=== PATIENT | female | born 1960 | race Caucasian/White ===

== ENCOUNTER 2022-03-30 07:58 | Day surgery (SDC) | payer MEDICAID, SELFPAY ==
--- NOTE | 2022-03-29 18:06 | PCM.HP.BLA ---
History and Physical Date of Admission: 03/30/22 Jo Huber 1960 ? ? REFERRING PHYSICIAN:? ?Jaclyn Klein MD ? CHIEF COMPLAINT:? ?left breast cancer? ? HPI: The patient is a 61 year old female presents with newly diagnosed left breast cancer She denies palpable breast masses. She denies nipple discharge. She states that her sister had breast cancer, no ovarian cancer known in family. 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 Her gynecological history is as follows - menarche onset at age 11/12, , breast feeding 4 years, denies exogenous hormones use, surgical menopause at age 43 ? Left breast mammograms 02/10/2022 There is an oval focal asymmetry in the left breast at 3 o'clock middle? depth.? This is seen in additional views.? This correlates with liver MRI? findings.? No other significant masses or calcifications are seen in the breast. IMPRESSION: INCOMPLETE: NEEDS ADDITIONAL IMAGING EVALUATION? The oval focal asymmetry in the left breast is indeterminate.? An? ultrasound is recommended. ? US left breast 02/10/2022 There is 1.3 cm x 1.2 cm x 0.8 cm oval mass in the left breast at 3? o'clock posterior depth.? This oval mass is hypoechoic.? This correlates? with mammography findings.? Color flow imaging demonstrates that there is? no vascularity present. IMPRESSION: SUSPICIOUS FINDING - BIOPSY SHOULD BE CONSIDERED? The 1.3 cm x 1.2 cm x 0.8 cm oval mass in the left breast is suspicious? of malignancy.? An ultrasound guided biopsy is recommended.? ? Jo is s/p US guided left breast needle core biopsy done on 02/22/2022 ? FINAL DIAGNOSIS A. Left breast, ultrasound-guided core biopsy: - Invasive ductal carcinoma, provisional Bimal grade 2, measuring 8 mm in greatest dimension. ? Breast Biomarkers - RESULTS: ?Estrogen Receptor (ER)? Positive 100 % ?Stain intensity: strong ?Progesterone Receptor (LA)? Positive 80 % ?Stain intensity: moderate HER2 (ERBB2) IMMUNOHISTOCHEMISTRY ASSAY Interpretation: NEGATIVE? ? PAST MEDICAL HISTORY ?Arthritis? ?Asthma? ?Depression? ?And anxiety ?GERD (gastroesophageal reflux disease)? ?Hypothyroidism01/26/2011 ?Malignant neoplasm of colon, unspecified [id number] ?Colon cancer ?Malignant neoplasm of liver, primary (HCC)1999 ?metastasis ?Migraine without aura? PAST SURGICAL HISTORY ?ABDOMINAL SURGERY HX ? ?ANES LWR ABD VENTRAL & INCISIONAL HERNIA REPAIR 1999 ?COLECTOMY PARTIAL W/ANASTOMOSIS 1999 ?Hemicolectomy ?COLON SURGERY HX ? ?COLONOSCOPY FLX DX W/COLLJ SPEC WHEN PFRMD ? ?Colonoscopy ?COLONOSCOPY FLX DX W/COLLJ SPEC WHEN PFRMD 05/04/2010 ?Performed by SANDRINE LABOY at [facility] ?COLONOSCOPY FLX DX W/COLLJ SPEC WHEN PFRMD 10/30/2015 ?Colonoscopy with mac ?COLONOSCOPY FLX DX W/COLLJ SPEC WHEN PFRMD 11/18/2020 ?ESOPHAGOGASTRODUODENOSCOPY TRANSORAL DIAGNOSTIC 10/08/2005 ?EGD ?ESOPHAGOGASTRODUODENOSCOPY TRANSORAL DIAGNOSTIC 10/28/2005 ?EGD ?ESOPHAGOGASTRODUODENOSCOPY TRANSORAL DIAGNOSTIC 10/30/2015 ?EGD with mac ?HERNIA REPAIR HX ? ?PAST SURGICAL HISTORY OF ? ?multiple RFA to the liver ?PAST SURGICAL HISTORY OF 1999 ?cholecystectomy ?TOTAL ABDOMINAL HYSTERECT W/WO RMVL TUBE OVARY 06/27/2003 ?bso also? for menorrhagia ?VAGINAL HYSTERECTOMY ? ? ? MEDICATIONS ?octreotide LAR (SANDOSTATIN LAR) 30 mg [place] INJInject 30 mg intramuscularly q 4 WEEKS. ?LUTEIN ORALTake 1 tablet by mouth once daily. ?doxepin capsule 50 mgTake 1 capsule by mouth daily at bedtime. ?verapamil SR (CALAN SR, ISOPTIN SR) 120 mg CR tabletTake 1 tablet by mouth daily at bedtime. ?PARoxetine (PAXIL) 20 mg tabletTake 1 tablet by mouth once daily. ?CALCIUM CITRATE ORALTake? by mouth once daily. ?FIBER, HERBAL, ORALTake 2 tablets by mouth every evening. ?levothyroxine (SYNTHROID) 100 mcg tabletTake 100 mcg by mouth daily before breakfast. ?Cholecalciferol, Vitamin D3, 2,000 unit tabTake 1 tablet by mouth once daily. ?SLIPPERY ELM BARK ORALTake 2 capsules by mouth twice daily. ?MILK THISTLE ORALTake 3 tablets by mouth twice daily. ?MULTIVITAMIN TABTake one(1) tablet daily. ?ALEVE 220 MG TABas necessary ?EXCEDRIN MIGRAINE 250 MG-250 MG-65 MG TABas necessary ?polyethylene glycol 3350 (MIRALAX, GLYCOLAX) 17 gram/dose powderUse as directed for Miralax / Gatorade Bowel Prep Kit ?Gatorade Sports DrinkUse as directed for Miralax / Gatorade Bowel Prep Kit ?Bisacodyl (DULCOLAX) 5 mg tabUse as directed for Miralax / Gatorade Bowel Prep Kit ?PARSLEY/GARLIC (GARLIC-PARSLEY ORAL)Take 2 capsules by mouth twice daily. ? ? ALLERGIES: Perfume, Adhesive, Bylhcccdxh-Ydrjjuiyrqheg-Xinc, Contrast Dye, Percocet [Oxycodone-Acetaminophen], and Seasonal Allergies ? PERSONAL HISTORY:? Tobacco Use ?Smoking status:Never ?Smokeless tobacco:Never Vaping Use ?Vaping Use:Never used Substance Use Topics ?Alcohol use:No ?Drug use:No ?? ? FAMILY HISTORY? ?HeartMother? ?CancerMother? Uterine ?DiabetesMother? type 2 ?HeartFather? ?[id number] ?other (Migraine)Son? ?other (Migraine)Daughter? ? ? The review of systems data was entered by the nurse and reviewed by me ? Nursing Notes:? Savannah Apodaca RN? 02/15/2022? 3:05 PM? Signed REVIEW OF SYSTEMS: ? ? ?General:? ?The patient NOTES fatigue, denies weight loss, NOTES weight gain, denies feeling hot, and denies feelings of cold. ? ? ?Eyes:? The patient denies glaucoma, denies eye injury/surgery, wears glasses or contacts. ? ? ?Ear/Nose/Throat:? The patient NOTES allergies, denies hayfever, denies ear infections, and denies bloody noses. ? ? ?Cardiovascular:? The patient denies chest pain, denies heart disease, denies high blood pressure,denies cardiac stent, denies prior heart attack, denies irregular heart beat, denies high cholesterol,? denies poor circulation, denies heart failure, other cardiac issues, denies claudication, denies cold feet, denies peripheral arterial stent. ? ? ?Respiratory:? The patient denies tuberculosis, NOTES pneumonia, denies frequent cough, denies pulmonary embolism, NOTES shortness of breath, and denies coughing up blood. ? ? ?Gastrointestinal:? The patient denies difficulty swallowing, NOTES acid reflux, denies ulcers, denies vomiting, denies jaundice/hepatitis, denies gallbladder problems, denies black or tarry stools, denies hemorrhoids, denies bleeding from rectum, NOTES diverticulitis, NOTES constipation, NOTES diarrhea, denies loss of stool control, and NOTES hernias. ? ? ?Kidney/Bladder:? The patient NOTES kidney stones, denies urine infections, and denies bloody urine. ? ? ?Skin:? The patient denies a history of skin cancer, denies bleeding/changing moles, and NOTES a history of skin rash. ? ? ?Neurologic:? The patient denies a history of epilepsy/convulsions, denies headaches, denies head/spinal injuries, and denies stroke/TIA. ? ? ?Psychiatric:? The patient denies psychiatric medications, NOTES depression, and denies voices, denies substance abuse. ? ? ?Endocrine:? The patient NOTES thyroid disorders, denies diabetes, and denies hormonal problems. ? ? ?Hematologic:? The patient denies a history of bruising, denies bleeding, and denies anemia, denies blood clots. ? ? ?Infections:? The patient NOTES a history of measles and mumps, denies rheumatic fever, and denies sexually transmitted diseases. ? ? ?Musculoskeletal:? The patient denies back pain/injury, denies back problems, denies sciatica, NOTES knee/foot trouble, denies arthritis, or denies gout. When was patient's last Mammogram screening? 02/10/2022 ?Last Colonoscopy:? 11/18/2020 Savannah Apodaca RN ? ? ? PHYSICAL EXAMINATION: ? General:? The patient is 61 year old female, well nourished, well hydrated in no acute distress.? The patient is oriented to time, place, and person. ? VITALS: Blood pressure 122/70, pulse 97, temperature 36.6 ?C (97.8 ?F), height 152.4 cm (5'), weight 88.1 kg (194 lb 3.2 oz), last menstrual period 12/01/2000, SpO2 95 %. Body mass index is 37.93 kg/m?.? ? Head ? Normocephalic. EOM intact with sclera clear and no icterus noted. Wearing glasses. Neck - supple with no jugular venous distention noted. Trachea is midline.? No thyroid enlargement or thyroid nodules detected. No masses noted. Chest/breast ? no asymmetry of breasts noted, no suspicious skin lesions noted 0 biopsy site well healed, no nipple discharge and both nipples everted, no breast masses noted Lungs ? clear to auscultation. Normal breath sounds. No rales/rhonchi/wheezing noted. No labored breathing noted, such as retractions. No cough heard. Heart ? normal S1 and S2 auscultated. No rubs/clicks/murmurs noted. Regular rate. Abdomen ? soft and benign. Difficult to determine if any masses or organomegaly due to body habitus. Extremities ? no calf tenderness noted. No pitting edema noted.? Skin ? normal skin integrity. Lymph ? no cervical adenopathy detected, no supraclavicular adenopathy detected, no axillary adenopathy detected Neurological ? gait normal, no focal deficits noted Psych ? calm and appropriate? ? ? IMPRESSION: LUOQ breast cancer (C50.412) ? PLAN:? I have discussed the above with the patient and her who is present with her I have offered surgical options of the following - breast lumpectomy via wire localization followed by radiation therapy versus mastectomy - either of which will require sentinel left axillary lymph node biopsy I have explained the procedure to the patient. I have counseled the patient as to the risks of the procedure, including but not limited to: infection, bleeding, injury to any blood vessels/nerves, scar tissue, seroma, lymphedema, cosmetic deformity, wound infections, complications of anesthesia, etc. ? the patient understands. The patient wishes to proceed. She will let me know her decision on day of surgery, she could not decide in our last conversation. I have answered multiple questions and she had no questions at time of last discussion. ?
--- NOTE | 2022-03-30 | IMM_PTH ---
PATIENT: CINTHIA CHACON LOC: [facility] [place] U#:[id number] AGE/SX: 61/F ROOM: RE03/30/[address]: Dr. Rita Estrella MD : 1960 BED: DIS: 03/30/2022 SPEC #: [id number] RECD: 04/02/22 12:42 STATUS: TAMMY REQ #: [id number] SHENG: 03/30/22 00:[address]: Rita Estrella DEPT: IMMUNOHISTOCHEMISTRY RECD BY: Karey Jo ENTERED: 04/02/22 12:44 SP TYPE: IMMUNO OTHR DR: Elías Gil, STREET ROLLER ENGINEER-C Tissues: A - Axillary lymph node, NOS Procedures: CK7 (add) Pankeratin (initial) Pankeratin (add) PHYSICIAN & INSTITUTION [place] [id number] SPECIMEN INFORMATION: Tissue Source: A ? Left axillary sentinel lymph nodes Clinical Info: Left breast cancer Specimen Number: [id number] A1-A4 CPT code: 77229, 09555 x7 METHODOLOGY: Deparaffinized sections of prefer/formalin-fixed tissue or PAP/DQ stained slides are incubated with monoclonal/polyclonal antibodies/oligonucleotide probes. Localization is made via biotin free immunoperoxidase method. Appropriate controls are performed and reacted as expected. Results on target cell population are indicated in the following table: RESULTS: ANTIBODY / CLONE RESULT Block A1 AE1-3 (AE1/AE3/PCK26) negative CK7 (OV-TL12/30) negative Block A2 AE1-3 (AE1/AE3/PCK26) negative CK7 (OV-TL12/30) negative Block A3 AE1-3 (AE1/AE3/PCK26) negative CK7 (OV-TL12/30) negative Block A4 AE1-3 (AE1/AE3/PCK26) negative CK7 (OV-TL12/30) negative These tests were developed and their performance characteristics determined by [facility]. They may not have been cleared or approved by the U.S. Food and Drug Administration. The FDA has determined that such clearance or approval is not necessary. The above immunohistochemical/dualISH markers are ordered and reviewed by the Pathologist. INTERPRETATION: A. Left axillary sentinel lymph nodes, biopsy: Three out of three lymph nodes, negative for metastatic carcinoma. BARBIE:foreign 04/05/2022
--- NOTE | 2022-03-30 | AXNB_PTH ---
PATIENT: CINTHIA CHACON LOC: [facility] [place] U#:[id number] AGE/SX: 61/F ROOM: RE03/30/[address]: Dr. Rita Estrella MD : 1960 BED: DIS: 03/30/2022 SPEC #: [id number] RECD: 03/30/22 12:33 STATUS: TAMMY RETom #: [id number] SHENG: 03/30/22 00:[address]: Rita Estrella DEPT: SURGICAL PATHOLOGY RECD BY: Karey Jo ENTERED: 03/30/22 13:28 SP TYPE: AX NODE BX OTHR DR: Elías Gil, PIER RUNNER-C Tissues: A - Axillary lymph node, NOS B - Left breast, NOS Procedures: Frozen Section (charge) Frozen Section Add'l ([facility]) Surgery Specimen Level V HEADER OPERATION: Left breast lumpectomy via wire localization with sentinel lymph node biopsy PRE-OP DIAGNOSIS: Left breast cancer TISSUE SUBMITTED: A ? Left axillary sentinel lymph node, FS, B ? Left breast lumpectomy, short suture - superior border, long suture - lateral, 2 short sutures - posterior border FROZEN SECTION DIAGNOSIS A. Left axillary sentinel lymph nodes, biopsy: Two out of two lymph nodes, negative for metastatic carcinoma. :foreign 03/30/2022 MICROSCOPIC DIAGNOSIS A. Left axillary sentinel lymph nodes, biopsy: Three out of three lymph nodes, negative for metastatic carcinoma. See comment. B. Left breast, lumpectomy with needle localization: Invasive ductal carcinoma. See cancer summary in the comment section. BARBIE:foreign 04/02/2022 COMMENT A. Block 4 also shows lymph node tissue. The lymph nodes are negative for metastatic carcinoma on multiple H & E levels and immunohistochemical stains for cytokeratins ([id number]). BREAST CANCER SUMMARY Procedure - excision with needle localization Specimen laterality - left Invasive tumor: Tumor site ? not specified Tumor size ? 1.4 x 1 x 1 cm Histologic type ? invasive ductal carcinoma with focal area of cribriform pattern. Histologic grade (Bimal grade): Glandular/tubular differentiation score - 2 Nuclear pleomorphism score - 3 Mitotic count score - 2 Overall grade - grade 2 (score of 7) Tumor focality ? single focus of invasive carcinoma. Ductal carcinoma in situ ? not identified. Lobular carcinoma in situ ? not identified Tumor extension: Skin ? not present Nipple ? not applicable Skeletal muscle ? not present Margins: Invasive carcinoma is 0.2 cm away from the closest superior margin. Regional lymph nodes: Number of lymph nodes examined - 3 Number of sentinel lymph nodes examined - 3 Number of lymph nodes with macrometastases, micrometastases or isolated tumor cells - 0 Treatment effect - no known presurgical therapy. Lymphvascular invasion ? not identified Dermal lymphvascular invasion ? not applicable Distant metastasis ? not applicable Additional Pathologic Findings ? fibrocystic changes and intraductal hyperplasia with focal areas of florid intraductal hyperplasia with multifocal atypia. Ancillary Studies: Previously performed on same tumor ([id number] from [facility]) ER: positive (100%, strong) VA: positive (80%, moderate) Aao2xsu: negative (0) Microcalcifications ? not identified Clinical History - Please make reference to previous specimen ([id number] from [facility]), left breast, ultrasound-guided core biopsy with diagnosis of ?invasive ductal carcinoma, provisional Bimal grade 2, measuring 8 mm in greatest dimension.? PATHOLOGIC STAGE: pT1c pN0(sn) pMx The above summary is in compliance with [employer] [employer] (CAP) Cancer Protocols Checklist and [place] [employer] Committee on Cancer (AJCC), Staging Manual, 8th Ed. Case has been reviewed in consultation with Dr. Clark who concurs with the above diagnosis. IDC:AM MICROSCOPIC DESCRIPTION Slides are reviewed. GROSS DESCRIPTION A - Received fresh for frozen section diagnosis labeled with the patient's name is a specimen designated left axillary sentinel lymph node. The specimen consists of a piece of adipose tissue containing nodules measuring 5 x 4 x 2 cm. Two lymph nodes are identified measuring 1 and 3 cm in greatest dimension. The lymph nodes are submitted for frozen section diagnosis in entirety. A focal indurated area, ? possible lymph node, is also noted. Cracking Machine Operator sections are submitted in four cassettes as follows: 1 & 2 - frozen section, one serially sectioned lymph node, 3 - frozen section, one bisected lymph node, 4??possible lymph node tissue. / :foreign 03/30/2022 B - Received fresh for intraoperative consultation labeled with the patient's name is a specimen designated left breast lump. The specimen consists of a piece of fibroadipose tissue with needle localization measuring 7 x 5 x 3 cm. The specimen is oriented as follows: short suture - superior border, long suture - lateral, 2 short sutures - posterior border. The specimen is inked as follows: anterior - yellow, posterior - black, superior - blue, inferior - green, medial - red and lateral - orange. Serial sections reveal a viveros, indurated tumor mass measuring 1.4 x 1 x 1 cm. This mass is closest to the superior margin of the specimen. Sections of the rest of the specimen reveal viveros-yellow adipose cut surfaces mixed with viveros-white fibrous area. Cracking Machine Operator sections are submitted in ten cassettes as follows: 1??perpendicular medial, lateral and anterior margins, 2 - perpendicular posterior and inferior margins, 35 - entire tumor with closest superior margin, 6-10 - sales representative supervisor sections away from the tumor. Sections are submitted after additional fixation. / :foreign 03/31/2022 TC:0 CPT: 90866 x2, 56232, 44265, 90959 x2
[2022-03-30 08:38] VITALS: BP 141/75; PULSE 87; RESP 17; TEMP 36.7; O2SAT 94; BMI 36.6
[2022-03-30] MEDS: Lactated Ringers 1,000 ML 75 ML IV (08:43)
--- NOTE | 2022-03-30 09:00 | NM_ITS ---
STUDY: NM Injection Procedure. PROCEDURE: Lohn lymph node injection. DATE OF EXAM: 03/30/2022 CLINICAL INDICATION: Left breast cancer. COMPARISON: Comparison is made to previous films from RADIOPHARMACEUTICAL: TECHNETIUM 99M sulfur colloid 1.0 mCi FINDINGS: The procedure, risks, alternatives and complications were explained to the patient and informed consent was obtained. The patient was placed supine on the table. Physical examination of the left breast was performed after which the periareolar region was prepped and draped in the usual sterile manner. The TECHNETIUM radiopharmaceutical was then injected subcutaneously in the periareolar tissues at the 4 quadrants and the needles were removed. Sterile dressing was placed. The patient tolerated the procedure well with no immediate complications. NM/Lymph Node Injection Only IMPRESSION: Left breast sentinel lymph node injection. Electronically Signed: Matt Salazar MD at 12:34 EDT ,
--- NOTE | 2022-03-30 09:30 | BI_ITS ---
SURGICAL BREAST SPECIMEN RADIOGRAPH CLINICAL: Document presence of tissue clip marker in biopsy specimen. FINDINGS: Specimen shows presence of tissue clip marker. Pathology is pending and an addendum to the biopsy report will be performed after the final pathologic diagnosis is rendered. Electronically Signed: Bladimir Robbins MD at 15:27 EDT , BI/Breast Biopsy Specimen IMPRESSION: undefined
--- NOTE | 2022-03-30 11:31 | OP.PCM_ITS ---
Report of Operation Date of Procedure: 03/30/22 Pre-Operative Diagnosis: left breast cancer - UOQ (C50.412) Post-Operative Diagnosis: same Surgery/Procedure Performed:: left breast lumpectomy via wire localization, left axillary sentinel lymph node biopsy via radioactive and blue dye localization Surgeon: Rita Estrella glass cutter: Leslie Cortez Type of Anesthesia: General Anesthesiologist: Dale Gomez Specimen's removed: left axillary sentinel lymph nodes, left breast lumpectomy specimen Estimated Blood Loss (mL): < 10 ml Fluids Replaced: see anesthesia note Description of Procedure: After informed consent was given, the patient was brought into the Breast [facility] Radiology suite. Appropriate time out protocol was followed. The patient was then placed in the prone position on the [place] stereotactic table. The patient?s left breast was placed in the opening at the head of the table. A maintenance planner compression mammogram was then obtained in the lateral view. The marker clip that was previously placed was identified. Stereo pictures of the lesion were then taken for XYZ coordinates. The Kopans needle was then positioned where it would be entering into the patient?s breast. The skin at this site was then cleansed with a surgical skin preparation. The skin and subcutaneous tissues at this site were then infiltrated with 1% xylocaine. The Kopans needle was then positioned into the patient?s breast at the proper coordinates of depth. A maintenance planner film was obtained which revealed the wire in proper position. The patient was then placed in the supine position and the wire was taped into place. A unilateral mammogram in the CC and MLO view were then taken for use in the OR. The patient tolerated this portion of the procedure well and was brought to the AC awaiting surgery in the OR. Name: ?left breast lumpectomy via wire localization and left axillary sentinel lymph node biopsy via radioactive and blue dye localization? Synoptic Portion: Element Response Options Operation performed with curative intent. [ Yes ] Tracer(s) used to identify sentinel nodes in the upfront surgery (non- neoadjuvant) setting (select all that apply). [Lymphozurin Dye; Radioactive tracer ] Tracer(s) used to identify sentinel nodes in the neoadjuvant setting (select all that apply).[ N/A.] All nodes (colored or non-colored) present at the end of a dye-filled lymphatic channel were removed. [Yes] All significantly radioactive nodes were removed. [Yes] All palpably suspicious nodes were removed. [Yes] Biopsy-proven positive nodes marked with clips prior to chemotherapy were identified and removed. Not applicable The patient was then brought to the Operating Room. Appropriate time out protocol was followed. The patient was then placed on the operating table in the supine position. A wire had already been placed in the stereotactic biopsy room in the radiology department as described above. The patient had radioactive isotope injected earlier this day by the radiologist for radioactive tracer tracking. After the patient was placed under general anesthesia by the anesthesia provider, the periareolar subcutaneous tissues (to include Sappey's plexus) of the left breast were infiltrated with lymhazurin blue dye - diluted to a 50:50 mixture with saline - total of 2 ml used, using a 25G needle. Gentle massage was then done for a few minutes. The left breast with the wire in placed and the axilla and the torso was then prepped with a sterile surgical skin preparation and sterile surgical drapes were placed. The Neoprobe device was brought into the operative field. A skin incision was made in the inferior portion of the hair bearing area of the left axilla. It was carried through to the subcutaneous tissues using electrocautery. Any hemorrhage was controlled with electrocautery. A Weitlaner retractor was used for increased operative exposure. The Neoprobe 10 second count over the tumor bed was 912. The 10 second count over the abdominal area was 0. The 10 second count over the axilla was 341. Blunt dissection was conducted into the soft tissues of the axilla. The blue lymphatic vessels were then followed by the blunt dissection until blue colored lymph nodes were identified. This lymph yajaira tissue was from the surrounding tissue by blunt dissection and the vascular pedicles ligated with ligaclips. The Neoprobe 10 second count of the lymph yajaira tissue was 256. The lymph yajaira tissue was then forwarded to pathology for frozen section. Pathology revealed that two lymph nodes were negative for metastatic disease. Careful examination was done in the axilla, no further palpable masses were noted in the axilla. No further blue colored tissue was noted in the axilla. The 10 second Neoprobe count in the axilla was 1. Hemostasis was carefully controlled by electrocautery. Charo was applied in the axillary cavity. The deep tissues were approximated with 2-0 vicryl suture. The skin edges were reapproximated with 3-0 vicryl suture in a horizontal mattress fashion and then further closed with running 4-0 monocryl in a subcuticular fashion. The left breast lumpectomy was done next. A wire had already been placed in the stereotactic biopsy room in the radiology department as described above. The skin and subcutaneous tissues at the site of the breast lesion was then infiltrated with 1% xylocaine with epinephrine. A transverse skin incision was then made at the wire entance site - mid-lateral aspect of the left breast. This was done with a 15 blade scalpel and carried down through to the subcutaneous tissues. Hemostasis was controlled with electrocautery. The wire was then palpated out within the breast tissue. The breast tissue surrounding the wire was then carefully palpated out and from the surrounding tissues using electrocautery. The breast tissue, once from the breast, was then forwarded to the radiology department, where a specimen mammogram revealed that the marker clip was within the specimen. The breast tissue was then forwarded to pathology for analysis. Pathology review revealed that the closest margin was superior but clear from the palpable mass. The wound cavity was carefully examined. No further suspicious tissue was palpated or visualized. Hemostasis was carefully controlled with electrocautery. The subdermal tissues were then approximated with vicryl suture. The incision was then reapproximated close using running monocryl suture. Cavilon and steristrips were then placed to reinforce the skin closure. Sponge, needle, and instrument count were verified and correct at the time of skin closure. A sterile dressing was then applied. The patient was then brought to the Recovery Room in stable condition. Complications none noted Admit VTE Documentation VTE Present on Admission: Yes VTE Mechan Device Prophylaxis: SCD's
[2022-03-30] MEDS: 0.9% Normal Saline (Pres. free 10 ML Vial (12:00)
[2022-03-30] MEDS: Isosulfan Blue 1% 5 ML Vial (12:00)
[2022-03-30] MEDS: Lidocaine 1% /Epi 1:100 (20ml) 20 ML Vial (12:06)
--- NOTE | 2022-03-30 13:49 | DCINST_ITS ---
Discharge Instructions Follow Up Care Test Results: Test results from this visit will be discussed in further detail at your follow- up appointment, if applicable. Discharge Plan Admission Attending Provider: Rita Estrella Primary Care Provider: Elías Gil NP Instructions Additional Instructions / Restrictions: Recommended pain control regimen - May take 600 mg ibuprofen (Motrin) and then in 3-4 hours, may take 650 mg acetaminophen (Tylenol), then in 3-4 hours may take 600 mg ibuprofen, then in 3- 4 hours may take 650 mg acetaminophen and so on for 2-3 days May take narcotic pain medication for pain that is not controlled by above and at night for comfort through the night Leave dressings in place May shower, do not scrub in the areas of the dressings as they may unravel. Do not soak - no tub baths/swimming Ice applied to areas of discomfort may help No lifting/pushing/pulling greater than 10 pounds for a month with left arm. Regular diet as tolerated, drink plenty of fluids. For breast surgeries - wear supportive bra during the day to prevent the weight of your breasts from pulling on the incisional site. Please call my office for an appointment to see me in on Apr 05, please call for a time. Office number is If any questions, please call my office at and ask the tape making machine operator for the general surgery nurses desk Discharge Orders/Prescriptions Prescriptions: New hydrocodone-acetaminophen 5-325 mg tablet 1 tab PO Q8H 5 Days Qty: 15 0RF No Action doxepin 50 mg Capsule 50 mg PO QHS atorvastatin 10 mg Tablet 10 mg PO QHS verapamil 120 mg Tablet 120 mg PO QHS paroxetine HCl [Paxil] 20 mg Tablet 20 mg PO DAILY levothyroxine 112 mcg Tablet 112 mcg PO DAILY octreotide acetate [Sandostatin] 100 mcg/mL Solution 100 mcg SUBCUT .[id number] Referrals / Follow Up: Elías Gil NP, [employer]ATIONAL [employer]ATIONS PROFESSOR-C [Primary Care Provider] -
[2022-03-30 14:05] VITALS: BP 128/78; BP 141/75; PULSE 87; RESP 18; TEMP 36.8; O2SAT 93
[2022-03-30 14:15] VITALS: BP 125/80; BP 141/75; PULSE 90; RESP 16; O2SAT 93
[2022-03-30 14:30] VITALS: BP 132/64; BP 141/75; PULSE 88; RESP 18; TEMP 36.6; O2SAT 96
[2022-03-30 15:28] VITALS: BP 113/67; BP 141/75; PULSE 86; RESP 16; TEMP 36.3; O2SAT 97
[2022-03-30] MEDS: HYDROcodone Bitartrate/Apap 5/325 Tablet PO (15:30)
[2022-03-30 15:58] VITALS: BP 117/58; BP 141/75; PULSE 85; RESP 16; TEMP 37.1; O2SAT 97
== END 2022-03-30 16:31 | disposition home or self-care (01) ==
LOC: SDC 08:01 → AC 08:01
PROVIDERS: PCP Nurse Practitioner Family; Referring Provider Surgery; Visit Provider Surgery
PROC: (CPT 19301; principal; 2022-03-30 11:15)
DX: C50.412 Malignant neoplasm of upper-outer quadrant of left female breast (principal); Z80.3 Family history of malignant neoplasm of breast; E78.00 Pure hypercholesterolemia, unspecified; F32.A Depression, unspecified; F41.9 Anxiety disorder, unspecified; Z85.038 Personal history of other malignant neoplasm of large intestine; Z85.05 Personal history of malignant neoplasm of liver
CPT/HCPCS: 19301; 19081; 38525; 00404; 88305; 19281; 38792; 76098; 88307; 88331; 88332; 88341; 88342; 93005; A9541; J7120; J2405; J3490; Q9968

== ENCOUNTER → 2023-07-12 | Outpatient (CLI) | payer MEDICAID, SELFPAY ==
[2023-07-12 17:43] LABS: Absolute Lymphocyte Count 1.82 X10^3/uL (0.83-4.51); Basophil# 0.05 X10^3/uL; Basophil% 0.8 % (0-1); Eosinophil# 0.17 X10^3/uL; Eosinophils% 2.6 % (0-5); Hematocrit 40.6 % (37-47); Hemoglobin 13.2 g/dL (12.0-15.0); Lymphocyte # 1.82 X10^3/ul (0.83-4.51); Lymphocyte % 27.7 % (19-41); Mean Corp Hgb Conc 32.5 g/dL (32-36); Mean Corpuscular Hgb 27.7 pg (27.0-32.0); Mean Corpuscular Volume 85.1 fL (81-99); Monocyte# 0.52 X10^3/uL; Monocyte% 7.9 % (0-10); NRBC Flagged by Analyzer 0 % (0-5); Neutrophil % 60.7 % (47-70); Platelet Count 263 K/mm3 (150-450); RBC Distribution Width CV 14.3 % (11.6-14.6); RBC Distribution Width SD 44.4 fl (35.1-43.9); Red Blood Count 4.77 M/mm3 (4.2-5.4); White Blood Count 6.6 K/mm3 (4.4-11.0)
[2023-07-12 18:02] LABS: Vitamin D,25 Hydroxy 21.7 ng/mL
[2023-07-12 18:18] LABS: AST(SGOT) 23 U/L (15-37); Alanine Aminotransfer ALT/SGPT 35 U/L (13-56); Albumin, Serum 3.7 g/dL (3.2-5.0); Alkaline Phosphatase 87 U/L (45-117); Anion Gap 8 (5-15); BUN 11 mg/dL (7-18); BUN/Creat Ratio 14.6 RATIO (10-20); Calcium,Total 8.7 mg/dL (8.5-10.1); Chloride 107 mmol/L (98-107); Cholesterol 216 mg/dL (200); Creatinine, Serum 0.75 mg/dL (0.55-1.02); EST Glomerular Filtration Rate 82 mL/min (>60); Est Glom Filt Rate - Afr Amer 99 mL/min (>60); Globulin 3.6 g/dL (2.2-4.2); Glucose 122 mg/dL (74-106); High Density Lipoprotein 34 mg/dL; Protein, Total 7.3 g/dL (6.4-8.2); Sodium Level 141 mmol/L (136-145); Triglycerides 294 mg/dL; Very Low Density Lipoprotein 59 mg/dL (5-40)
== END | disposition home or self-care (01) ==
LOC: MFPLAB 15:22
PROVIDERS: PCP Family Medicine; Visit Provider Family Medicine
DX: F32.A Depression, unspecified (principal); E78.00 Pure hypercholesterolemia, unspecified; E03.9 Hypothyroidism, unspecified
CPT/HCPCS: 36415; 80053; 80061; 82306; 84443; 85025

== ENCOUNTER → 2023-10-18 | Outpatient (CLI) | payer MEDICAID, SELFPAY ==
[2023-10-18 13:01] LABS: Erythrocyte Sedimentation Rate 10 mm/hr (0-30)
[2023-10-18 13:03] LABS: Absolute Lymphocyte Count 1.32 X10^3/uL (0.83-4.51); Absolute Neutrophil Count 3.4 X10^3/uL (2.0-7.7); Basophil# 0.03 X10^3/uL; Basophil% 0.6 % (0-1); Eosinophil# 0.07 X10^3/uL; Eosinophils% 1.3 % (0-5); Hematocrit 41.9 % (37-47); Hemoglobin 13.3 g/dL (12.0-15.0); Lymphocyte # 1.32 X10^3/ul (0.83-4.51); Mean Corp Hgb Conc 31.7 g/dL (32-36); Mean Corpuscular Hgb 26.7 pg (27.0-32.0); Mean Corpuscular Volume 84.1 fL (81-99); Mean Platelet Vol. 10.7 fl (6.2-12.0); Monocyte# 0.44 X10^3/uL; Monocyte% 8.3 % (0-10); NRBC Flagged by Analyzer 0 % (0-5); Neutrophil # 3.41 X10^3/uL (2.7-7.7); Neutrophil % 64.6 % (47-70); Platelet Count 225 K/mm3 (150-450); RBC Distribution Width CV 14.3 % (11.6-14.6); RBC Distribution Width SD 43.8 fl (35.1-43.9); Red Blood Count 4.98 M/mm3 (4.2-5.4); White Blood Count 5.3 K/mm3 (4.4-11.0)
[2023-10-18 14:49] LABS: ALB/GLOB Ratio 1.2 RATIO (0.9-2.4); AST(SGOT) 19 U/L (15-37); Alanine Aminotransfer ALT/SGPT 22 U/L (13-56); Albumin, Serum 3.7 g/dL (3.2-5.0); Alkaline Phosphatase 74 U/L (45-117); Anion Gap 7 (5-15); BUN 11 mg/dL (7-18); BUN/Creat Ratio 13.9 RATIO (10-20); Chloride 109 mmol/L (98-107); Creatinine, Serum 0.79 mg/dL (0.55-1.02); EST Glomerular Filtration Rate 78 mL/min (>60); Est Glom Filt Rate - Afr Amer 94 mL/min (>60); Globulin 3.2 g/dL (2.2-4.2); Glucose 95 mg/dL (74-106); Potassium 4.2 mmol/L (3.5-5.1); Protein, Total 6.9 g/dL (6.4-8.2); Sodium Level 142 mmol/L (136-145)
== END | disposition home or self-care (01) ==
LOC: MFPLAB 10:50
PROVIDERS: PCP Family Medicine; Visit Provider Family Medicine
DX: R51.9 Headache, unspecified (principal)
CPT/HCPCS: 36415; 80053; 85025; 85652

== ENCOUNTER → 2023-10-21 | Outpatient (CLI) | payer MEDICAID, SELFPAY ==
--- NOTE | 2023-10-21 12:44 | MRI_ITS ---
STUDY: MRI BRAIN WITH AND WITHOUT CONTRAST REASON FOR EXAM: Female, 63 years old. headache, dysmetria, impaired number identification TECHNIQUE: Standardized multiplanar fat and water weighted pulse sequences were obtained. IV 16ml clariscan was administered for the contrast portion of the examination. COMPARISON: None. FINDINGS: Normal size of the ventricles and extra-axial spaces for the patient''s age. Normal white matter tracts of the supratentorial brain. There are no demyelinating plagues of the supratentorial brain, brainstem or cerebellum. There are no findings suspicious for multiple sclerosis (MS). Normal bilateral frontal poles, and orbital frontal and gyrus recti of the frontal lobes. Normal bilateral temporal tips of the temporal lobes. There are no white matter shear injuries (diffuse axonal injuries). There are no parenchymal hemorrhages or hematomas. There are no findings to suggest prior closed head parenchymal injury of the brain. There is no evidence for recent intracranial ischemia or other cause of cytotoxic edema on diffusion weighted imaging (DWI). No hydrocephalus or midline shift is present. No focal parenchymal edema is seen. Normal bilateral basal ganglia. Normal thalami. There is no extra-axial fluid accumulation. Normal flow voids within the major intracranial circulation suggesting patency by spin echo criteria. Normal venous enhancement. There is no enhancing intra-axial or extra-axial abnormality. There are no enhancing lesions of the brain parenchyma and no abnormal thickening or enhancement of meninges or dura. No skull lesions are present. Normal sella turcica, pituitary gland, infundibular stalk, optic chiasm and hypothalamus. Normal tectal plate and pineal gland. Normal midbrain, ethan and medulla. Normal cerebellum. Normal basal cisterns. Normal bilateral temporal bones. Normal bilateral internal auditory canals. No demonstrated orbital abnormality, within the constraints of a routine brain study. Normal visualized paranasal sinuses. Normal calvarium and skull base. Normal visualized soft tissue structures. Normal visualized upper cervical spine. MRI/Brain W/WO Contrast IMPRESSION: 1. Normal unenhanced and enhanced MRI of the brain. 2. There are no enhancing lesions of the brain parenchyma and no abnormal thickening or enhancement of meninges or dura. No skull lesions are present. 3. No demonstrated acute infarct. Electronically Signed: Oneil Ho MD at 15:34 EDT ,
== END | disposition home or self-care (01) ==
LOC: MRI 12:41
PROVIDERS: PCP Family Medicine; Referring Provider Family Medicine; Visit Provider Family Medicine
DX: R27.8 Other lack of coordination (principal)
CPT/HCPCS: 70553; A9575

== ENCOUNTER → 2023-10-25 | Outpatient (CLI) | payer MEDICAID, SELFPAY ==
[2023-10-25 10:33] LABS: AST(SGOT) 19 U/L (15-37); Alanine Aminotransfer ALT/SGPT 22 U/L (13-56); Albumin, Serum 3.4 g/dL (3.2-5.0); Alkaline Phosphatase 71 U/L (45-117); Bilirubin, Direct 0.16 mg/dL (0.00-0.30); Globulin 3.3 g/dL (2.2-4.2); Protein, Total 6.7 g/dL (6.4-8.2)
== END | disposition home or self-care (01) ==
LOC: MFPLAB 08:49
PROVIDERS: PCP Family Medicine; Visit Provider Family Medicine
DX: E80.6 Other disorders of bilirubin metabolism (principal)
CPT/HCPCS: 36415; 80076

== ENCOUNTER → 2024-03-20 | Outpatient (CLI) | payer MEDICAID, SELFPAY ==
--- NOTE | 2024-03-20 14:29 | RAD_ITS ---
INDICATION: right arm injury EXAMINATION/TECHNIQUE: X-RAY - RIGHT XR Forearm 2 Views 2 VIEWS COMPARISON: No relevant prior comparison study available FINDINGS: SOFT TISSUES: No soft tissue swelling or gas. No radiopaque foreign body. BONES/JOINTS: No acute fracture or subluxation.. Normal alignment. Preservation of the joint space.. No sclerotic or destructive changes observed. RAD/Forearm 2 Views IMPRESSION: 1. No evidence fracture, malalignment or focal bony or joint space abnormality. Electronically Signed: Bladimir Giraldo MD at 19:23 EDT ,
--- NOTE | 2024-03-20 14:29 | RAD_ITS ---
INDICATION: Injury EXAMINATION/TECHNIQUE: X-RAY - LEFT XR Wrist Min 3 Views 3 VIEWS COMPARISON: No relevant prior comparison study available FINDINGS: SOFT TISSUES: No soft tissue swelling or gas. No radiopaque foreign body. BONES/JOINTS: There is normal bony alignment, carpal rows have normal appearance. Mild degenerative change noted at the triscaphe joint. Mildly irregular appearance of the base of the 1st metacarpal which appears to be chronic or developmental. Joint spaces are maintained. No fractures noted. No acute destructive bony process. RAD/Wrist min 3 Views IMPRESSION: 1. No fractures, dislocation or acute bony changes. 2. Degenerative changes at the triscaphe joint Electronically Signed: Bladimir Giraldo MD at 19:19 EDT ,
--- NOTE | 2024-03-20 14:29 | RAD_ITS ---
INDICATION: Left shoulder injury EXAMINATION/TECHNIQUE: X-RAY - LEFT XR Shoulder Min 2 Views COMPARISON: No previous relevant examinations for comparison. FINDINGS: SOFT TISSUES: 1. No soft tissue swelling or gas. 2. Multiple pins are projecting over the soft tissues of the mid chest and LEFT shoulder. 3. No other radiopaque foreign body. BONES/JOINTS: 1. No acute fracture or subluxation.. Normal alignment. Preservation of the joint space.. No sclerotic or destructive changes observed. 2. There is normal glenohumeral motion. There is normal alignment of the acromioclavicular joint however mildly prominent osteophytes are present.. 3. The clavicle, acromion, scapula and rib cage have normal appearance. RAD/Shoulder min 2 Views IMPRESSION: 1. No fracture malalignment or focal bony or joint space abnormality involving the shoulder.. 2. Osteophyte formation at the AC joint. 3. Multiple pins are projecting over the LEFT shoulder and midline of the chest. Electronically Signed: Bladimir Giraldo MD at 19:22 EDT ,
== END | disposition home or self-care (01) ==
LOC: MTRAD 14:26
PROVIDERS: PCP Family Medicine; Referring Provider Family Medicine; Visit Provider Family Medicine
DX: M19.032 Primary osteoarthritis, left wrist (principal); S49.91XS Unspecified injury of right shoulder and upper arm, sequela
CPT/HCPCS: 73030; 73090; 73110

== ENCOUNTER → 2024-10-12 | Outpatient (CLI) | payer MEDICAID, SELFPAY ==
[2024-10-12 10:48] LABS: Absolute Lymphocyte Count 1.72 X10^3/uL (0.83-4.51); Absolute Neutrophil Count 3.7 X10^3/uL (2.0-7.7); Basophil# 0.04 X10^3/uL; Basophil% 0.7 % (0-1); Eosinophil# 0.12 X10^3/uL; Hematocrit 40.8 % (37-47); Hemoglobin 13.3 g/dL (12.0-15.0); Lymphocyte # 1.72 X10^3/ul (0.83-4.51); Lymphocyte % 28.8 % (19-41); Mean Corp Hgb Conc 32.6 g/dL (32-36); Mean Corpuscular Hgb 28.3 pg (27.0-32.0); Mean Corpuscular Volume 86.8 fL (81-99); Mean Platelet Vol. 9.9 fl (6.2-12.0); Monocyte# 0.43 X10^3/uL; Monocyte% 7.2 % (0-10); NRBC Flagged by Analyzer 0 % (0-5); Neutrophil # 3.65 X10^3/uL (2.7-7.7); Platelet Count 227 K/mm3 (150-450); RBC Distribution Width SD 44.8 fl (35.1-43.9)
[2024-10-12 12:20] LABS: ALB/GLOB Ratio 1.6 RATIO (0.9-2.4); AST(SGOT) 17 U/L (<=31); Alanine Aminotransfer ALT/SGPT 10 U/L (<=34); Albumin, Serum 4.3 g/dL (3.4-4.8); Alkaline Phosphatase 76 U/L (35-104); Anion Gap 11 (5-15); BUN 13 mg/dL (4-19); BUN/Creat Ratio 18.5 RATIO (10-20); Calcium,Total 9.5 mg/dL (7.6-11.0); Carbon Dioxide 25.8 mmol/L (21.0-32.0); Chloride 104 mmol/L (98-108); Creatinine, Serum 0.68 mg/dL (0.70-1.20); EST Glomerular Filtration Rate 96 (>60); Globulin 2.6 g/dL (2.2-4.2); Glucose 93 mg/dL (70-99); Iron 90 ug/dL (50-170); Iron Binding Capacity,Total 260 ug/dL (250-450); Iron Binding Capacity,Unsat 170 ug/dL (228-428); Potassium 4.6 mmol/L (3.3-5.1); Protein, Total 6.9 g/dL (5.9-8.4); Sodium Level 141 mmol/L (133-145); Thyroid Stim Hormone (TSH) 0.434 uIU/mL (0.300-4.200); Total Bilirubin 0.92 mg/dL (0.00-1.30); Vitamin D,25 Hydroxy 58.6 ng/mL (30-100)
== END | disposition home or self-care (01) ==
LOC: MFPLAB 09:45
PROVIDERS: PCP Family Medicine; Referring Provider Family Medicine; Visit Provider Family Medicine
DX: R53.83 Other fatigue (principal); E55.9 Vitamin D deficiency, unspecified
CPT/HCPCS: 36415; 80053; 82306; 83540; 83550; 84443; 85025

== ENCOUNTER → 2025-02-01 | Outpatient (CLI) | payer MEDICAID, SELFPAY ==
--- NOTE | 2025-02-01 10:15 | US_ITS ---
PROCEDURE: ABDOMEN LIMITED 02/01/2025 REASON FOR EXAM: RUQ ABDOMINAL TENDERNESS TECHNIQUE: ABDOMEN LIMITED COMPARISON: No FINDINGS: Liver is normal in size, heterogeneous in echotexture with surface nodularity suggesting cirrhotic morphology. In the left lobe, there is a hyperechoic focus measuring up to 1.6 cm, nonspecific but possibly hemangioma. In the right lobe, there is an irregular echogenic lesion, low echo center, measuring 3 x 3.4 x 3.6 cm. By history, the patient has had a liver mass partially removed and this might represent residual tumor. Patient is status post cholecystectomy. 3 mm CBD. Hepatopetal portal flow. Unremarkable visible pancreas. The right kidney measures 11 cm in length without hydronephrosis. There is a 1.4 cm simple cyst. US/Abdomen Limited IMPRESSION: Cirrhotic liver. There are 2 distinct liver lesions, 1 is likely a hemangioma. The other may be tumor residual/recurrence. Recommend triple phase CT, or MRI for further assessment. [facility]
== END | disposition home or self-care (01) ==
LOC: US 10:12
PROVIDERS: PCP Family Medicine; Referring Provider Family Medicine; Visit Provider Family Medicine
DX: R10.811 Right upper quadrant abdominal tenderness (principal)
CPT/HCPCS: 76705

== ENCOUNTER → 2025-02-15 | Outpatient (CLI) | payer MEDICAID, SELFPAY ==
[2025-02-15 16:59] LABS: AST(SGOT) 19 U/L (<=31); Alanine Aminotransfer ALT/SGPT 22 U/L (<=34); Albumin, Serum 3.8 g/dL (3.4-4.8); Alkaline Phosphatase 79 U/L (35-104); Anion Gap 14 (5-15); BUN 7 mg/dL (4-19); BUN/Creat Ratio 10.1 RATIO (10-20); Calcium,Total 9.5 mg/dL (7.6-11.0); Carbon Dioxide 22.0 mmol/L (21.0-32.0); Chloride 108 mmol/L (98-108); Globulin 2.6 g/dL (2.2-4.2); Glucose 81 mg/dL (70-99); Potassium 3.8 mmol/L (3.3-5.1)
[2025-02-15 17:05] LABS: Hepatitis C Antibody Nonreactive (Nonreactive)
== END | disposition home or self-care (01) ==
LOC: MFPLAB 11:47
PROVIDERS: PCP Family Medicine; Referring Provider Family Medicine; Visit Provider Family Medicine
DX: D49.0 Neoplasm of unspecified behavior of digestive system (principal)
CPT/HCPCS: 36415; 80053; 86704; 86705; 86707; 86803